=== PATIENT | female | born 1930 | race Caucasian/White ===

== ENCOUNTER → 2017-04-04 | Outpatient (CLI) | payer MEDICARE ==
[~2017-04-04] MED LIST: ANAS1TAB PO; CALCTAB68 PO; LOVA20TA2 PO; OXYC30TA4 PO; PRIN10TA PO
--- NOTE | 2017-04-05 07:48 | RADONC ---
RADIATION ONCOLOGY FOLLOWUP NOTE DATE: 04/04/2017 CHART NUMBER: [id number] DIAGNOSIS: Right breast cancer Stage: I A, [id number]. ECOG performance status: zero FOLLOWUP NOTE: Ms. Leonardo is a very pleasant 87-year-old white female with the diagnosis of a stage I A, [id number] moderately differentiated infiltrating ductal carcinoma of the right breast who is presenting to us today for routine followup visit 5 years 8 months post completion of external beam radiation therapy. The patient presents today reporting that she is doing quite well with no complaints at this time related to her radiation therapy or disease. She has no breast or bone pain. REVIEW OF SYSTEMS: The patient's review of systems is noncontributory. Denies nausea, vomiting, fevers, chills, night sweats, diplopia, headaches, anxiety or depression, anorexia, weight loss, visual disturbances, chest pain, urinary or bowel difficulties, bone pain, or neurological problems. PHYSICAL EXAMINATION: The patient is a well-developed, well-nourished, 87-year-old female in no acute distress. HEENT exam is normocephalic, atraumatic. Extraocular movements are intact. There is no palpable cervical, supraclavicular, infraclavicular, axillary, or inguinal lymphadenopathy present. Lungs are clear to auscultation and percussion. Heart has a regular rate and rhythm. Abdomen is benign with no hepatosplenomegaly, masses, or tenderness. Breast examination reveals no masses or tenderness present over the left breast. The right breast shows some nodular fibrosis from her scar. There are no suspicious lesions however. Skeletal examination reveals no tenderness to pressure or percussion of the bony skeleton. Extremities reveal no clubbing, cyanosis, or edema. Neurologic exam is grossly intact, as is the remainder of the physical examination. ASSESSMENT: The patient is clinically NEREIDA at this time and will be seen by us again in 1 year for further followup. She will also continue to be followed by her other physicians as well. A mammogram was done on 10/31/2016 and showed no evidence of malignancy. cc: Nahed Rothman MD, FACP DO Charlie Mann MD [facility]
== END ==
LOC: M ONCR 11:21
PROVIDERS: ATTEND Radiology Radiation Oncology
DX: C50.211 Malignant neoplasm of upper-inner quadrant of right female breast (principal)

== ENCOUNTER → 2018-04-10 | Outpatient (CLI) | payer MEDICARE | LOC: M ONCR 10:59 | DX: C50.211 Malignant neoplasm of upper-inner quadrant of right female breast (principal) ==